=== PATIENT | male | born 1975 | race Caucasian/White ===

== ENCOUNTER 2020-07-05 13:49 | Outpatient (REF) | payer BC, SELFPAY | END 2020-07-05 13:50 | disposition home or self-care (01) | LOC: HO.LAB 13:49 | PROVIDERS: PCP Internal Medicine; Visit Provider Internal Medicine | DX: Z20.828 Contact with and (suspected) exposure to other viral communicable diseases (principal) | CPT/HCPCS: 87635 ==

== ENCOUNTER → 2020-09-21 13:48 | Outpatient (BNVA) | payer BC, SELFPAY | PROVIDERS: PCP Internal Medicine; Visit Provider Surgery | DX: Z76.89 Persons encountering health services in other specified circumstances (principal) ==

== ENCOUNTER 2020-10-05 13:55 | Outpatient (REF) | payer BC, SELFPAY ==
[2020-10-05 14:27] LABS: MANUAL DIFF FLAG NO
[2020-10-05 14:32] LABS: Basophils Percent Auto 0.6 % (0-2); Eosinophils Absolute Auto 0.3 X10*3/uL (0.0-0.4); Eosinophils Percent Auto 5.1 % (0-4); Hematocrit 45.5 % (42-52); Hemoglobin 15.2 g/dl (14.0-18.0); Imm Gran Abs Auto 0.01 X10*3/uL (0.00-0.03); Imm Gran Pct Auto 0.2 % (0.0-0.4); Lymphocytes Absolute Auto 1.8 X10*3/uL (1.2-4.9); Lymphocytes Percent Auto 27.2 % (20-40); Mean Corpuscular HGB Conc 33.4 g/dl (31.0-36.0); Mean Corpuscular Hemoglobin 30.5 pg (27.0-33.0); Mean Corpuscular Volume 91.4 fL (80-98); Mean Platelet Volume 10.4 fL (9.4-12.4); Monocytes Absolute Auto 0.6 X10*3/uL (0.1-1.2); Monocytes Percent Auto 8.9 % (2-11); Neutrophils Absolute Auto 3.9 X10*3/uL (2.0-8.3); Platelet Count 343 X10*3/uL (160-400); Red Blood Count 4.98 X10*6/uL (4.60-5.80); Red Cell Distribution Width 12.4 % (11.0-16.0); White Blood Count 6.7 X10*3/uL (4.8-10.8)
[2020-10-05 14:54] LABS: Alanine Aminotransferase 24 U/L (0-40); Albumin Level 4.6 g/dL (3.5-5.0); Alkaline Phosphatase 73 U/L (39-117); Anion Gap 12 (12-20); Aspartate Amino Transferase 20 U/L (5-37); Bilirubin Total 0.5 mg/dL (0.0-1.0); Blood Urea Nitrogen 18 mg/dL (9-16); Calcium 9.5 mg/dL (8.4-10.2); Carbon Dioxide 31 mmol/L (22-29); Chloride 99 mmol/L (96-108); Cholesterol 166 mg/dL; Estimated Glomerular Filt Rate > 60; Glucose Fasting 96 mg/dL (60-99); HDL Cholesterol 43 mg/dL; LDL Cholesterol Calculated 107 mg/dl; Potassium 4.8 mmol/l (3.3-5.1); Sodium 137 mmol/L (135-145); Triglycerides 81 mg/dL
== END 2020-10-05 13:56 | disposition home or self-care (01) ==
LOC: HO.LAB 13:55
PROVIDERS: PCP Internal Medicine; Visit Provider Internal Medicine
DX: Z00.00 Encounter for general adult medical examination without abnormal findings (principal); I10 Essential (primary) hypertension; F32.89 Other specified depressive episodes; H92.02 Otalgia, left ear
CPT/HCPCS: 36415; 80053; 80061; 85025

== ENCOUNTER 2020-10-31 13:17 | Outpatient (REF) | payer BC, SELFPAY ==
--- NOTE | ~2020-10-31 | CT_ITS ---
EXAMINATION: CT ABDOMEN AND PELVIS WITHOUT CONTRAST CLINICAL INFORMATION: Abdominal pain. COMPARISON: None. TECHNIQUE: Multidetector volumetric imaging was performed from the superior aspect of the liver through the pubic symphysis. Sagittal and coronal reformatted images were obtained on the technologist's workstation. This CT examination was performed using dose optimization techniques as appropriate, variously including the following: *Automated exposure control *Adjustment of mA and/or kV according to patient size (this includes techniques or standardized protocols for targeted exams where dose is matched to indication/reason for exam; i.e. extremities or head) *Use of iterative reconstruction technique DLP: 541 mGy-cm. FINDINGS: LUNG BASES: There is plate-like atelectasis in the lingula. There is a subpleural-based 6 mm nodule left lower lobe image 2/7. No additional nodules seen. The heart size is normal. LIVER, GALLBLADDER, AND BILIARY TREE: The liver is normal in size, shape, and attenuation. No focal hepatic lesion or biliary ductal dilatation is present. The gallbladder is unremarkable with no evidence of radiopaque gallstones, gallbladder wall thickening, or obvious pericholecystic inflammatory changes. PANCREAS: Unremarkable. SPLEEN: Unremarkable. ADRENAL GLANDS: Unremarkable. KIDNEYS AND URETERS: Both kidneys are normal size, shape and position. No radiopaque renal calculi, cyst or hydronephrosis seen. BLADDER: Unremarkable. GASTROINTESTINAL TRACT: There is scattered stool and gas seen throughout the colon without any significant distention. Small bowel loops are normal caliber. The stomach is nondistended. Appendix is not visualized. ABDOMINAL WALL: No significant hernia is appreciated. LYMPH NODES: There are numerous lymph nodes seen within small bowel mesentery in the left midabdomen with mild mesenteric fat stranding. The largest lymph node measures 1.4 x 0.8 cm. There are small retroperitoneal lymph nodes as well. VASCULAR: Unremarkable. PELVIC VISCERA: Unremarkable. OSSEOUS STRUCTURES: There is mild straightening of the lumbar lordosis. Loss of L5-S1 disc height is noted. No lytic or sclerotic process seen. CT/CT abdomen pelvis wo con IMPRESSION: Diffuse mesenteric haziness with multiple small to moderate-sized lymph nodes, nonspecific mesenteric adenitis. Left lower lobe subpleural-based [address] correlation.
== END 2020-10-31 13:18 | disposition home or self-care (01) ==
LOC: HO.CT 13:17
PROVIDERS: Visit Provider Surgery
DX: R10.9 Unspecified abdominal pain (principal); G89.29 Other chronic pain
CPT/HCPCS: 74176

== ENCOUNTER → 2020-11-10 09:49 | Outpatient (BNVA) | payer BC, SELFPAY | PROVIDERS: PCP Internal Medicine; Visit Provider Surgery ==

== ENCOUNTER 2021-01-02 13:29 | Outpatient (REF) | payer BC, SELFPAY ==
[2021-01-02 15:53] LABS: Blood Urea Nitrogen 22 mg/dL (9-16); Estimated Glomerular Filt Rate > 60
== END 2021-01-02 13:30 | disposition home or self-care (01) ==
LOC: HO.LAB 13:29
PROVIDERS: PCP Internal Medicine; Visit Provider Surgery
DX: I88.0 Nonspecific mesenteric lymphadenitis (principal); G89.29 Other chronic pain; R10.9 Unspecified abdominal pain
CPT/HCPCS: 36415; 82565; 84520

== ENCOUNTER 2021-02-08 13:20 | Outpatient (REF) | payer BC, SELFPAY ==
[2021-02-08 13:39] LABS: COVID-19 Test Negative (Negative)
== END 2021-02-08 13:21 | disposition home or self-care (01) ==
LOC: HO.LAB 13:20
PROVIDERS: Visit Provider Internal Medicine
DX: Z20.822 Contact with and (suspected) exposure to COVID-19 (principal)
CPT/HCPCS: 36415; 87635; C9803

== ENCOUNTER 2021-03-01 14:28 | Outpatient (REF) | payer BC, SELFPAY ==
--- NOTE | ~2021-03-01 | CT_ITS ---
EXAMINATION: CT ABDOMEN AND PELVIS WITH CONTRAST CLINICAL INFORMATION: Abdominal pain. COMPARISON: Previous CT of the abdomen and pelvis October 2020 TECHNIQUE: Multidetector volumetric images were obtained from the superior aspect of the liver through the pubic symphysis following administration 85 mL of Omnipaque 350 intravenous contrast. Sagittal and coronal reformatted images were obtained on the technologist's workstation. Oral contrast: Yes. This CT examination was performed using dose optimization techniques as appropriate, variously including the following: *Automated exposure control *Adjustment of mA and/or kV according to patient size (this includes techniques or standardized protocols for targeted exams where dose is matched to indication/reason for exam; i.e. extremities or head) *Use of iterative reconstruction technique DLP: 369 mGy-cm FINDINGS: LUNG BASES: There is a partially visualized 4 mm peripheral or subpleural left lower nodule that is probably stable. The lung bases are otherwise clear. LIVER, GALLBLADDER, AND BILIARY TREE: The liver is normal in size, shape, and attenuation. No focal hepatic lesion or biliary ductal dilatation is present. The gallbladder is unremarkable with no evidence of radiopaque gallstones, gallbladder wall thickening, or obvious pericholecystic inflammatory changes. PANCREAS: Unremarkable. SPLEEN: Unremarkable. ADRENAL GLANDS: Unremarkable. KIDNEYS AND URETERS: The kidneys are normal in size, shape, and attenuation. No hydronephrosis, hydroureter, or calculi seen. No perinephric stranding. BLADDER: Unremarkable. GASTROINTESTINAL TRACT: The small and large bowel are unremarkable. The appendix is not identified. The stomach is unremarkable. ABDOMINAL WALL: No significant hernia is appreciated. LYMPH NODES: Small bowel mesentery lymph nodes and small bowel mesentery fat stranding appears decreased compared to October 2020 exam. There are small bowel mesentery and retroperitoneal lymph nodes. No enlarged lymph nodes are seen. There is no ascites. VASCULAR: Unremarkable. PELVIC VISCERA: Unremarkable. OSSEOUS STRUCTURES: Unremarkable. CT/CT abdomen pelvis w con IMPRESSION: Interval decrease in small bowel mesentery lymphadenopathy and fat stranding compared to October 2020 exam. No enlarged lymph nodes are seen.
[2021-03-01] MEDS: iohexoL 350 MG/ML 100 ML INFUS..BTL 85 ML IV (15:05)
== END 2021-03-01 14:29 | disposition home or self-care (01) ==
LOC: HO.CT 14:28
PROVIDERS: Visit Provider Surgery
DX: R10.9 Unspecified abdominal pain (principal); G89.29 Other chronic pain
CPT/HCPCS: 74177; Q9967

== ENCOUNTER 2022-08-17 18:33 | Emergency (ER) | payer BC, SELFPAY ==
--- NOTE | ~2022-08-17 | XR_ITS ---
EXAMINATION: XR LUMBOSACRAL SPINE CLINICAL INFORMATION: Severe back pain COMPARISON: None TECHNIQUE: Three views of the lumbosacral spine. FINDINGS: The vertebral bodies and posterior elements are normal. Mild degenerative disc disease with endplate degenerative changes at L5-S1. The paraspinal soft tissues are normal. XR/XR lumbar spine 2-3V IMPRESSION: Mild degenerative disease at L5-S1.
[2022-08-17 19:41] VITALS: BP 158/86; PULSE 121; RESP 16; TEMP 36.4; O2SAT 95; BMI 27.1
--- NOTE | 2022-08-17 19:41 | ED.BACK ---
HPI - Back Pain/Injury General Chief Complaint: Back Pain/Injury Stated Complaint: sciatic Time Seen by Provider: 08/17/22 21:35 Related Data Home Medications Medication Instructions Recorded Confirmed lisinopril 20 1 tab PO DAILY 09/21/20 01/02/21 mg-hydrochlorothiazide 12.5 mg tablet sertraline 50 mg tablet 50 mg PO DAILY 09/21/20 01/02/21 Previous Rx's Medication Instructions Recorded cyclobenzaprine 10 mg tablet 10 mg PO BEDTIME PRN muscle spasm 08/18/22 #7 tabs ketorolac 10 mg tablet 10 mg PO TID PRN pain 5 days #15 08/18/22 tabs lidocaine 5 % topical patch 1 patch topical DAILY PRN pain #15 08/18/22 ea Allergies Allergy/AdvReac Type Severity Reaction Status Date / Time No Known Allergies Allergy Verified 01/02/21 13:49 [facility] Past Medical History Medical History (Updated 08/17/22 @ 22:11 by EVE Alaniz) Chronic left flank pain Depression Hypertension Mesenteric adenitis Surgical History History of appendectomy History of bilateral inguinal hernia repair History of ear surgery Family History Family History Father Parkinson disease Diabetes Social History Social History Advance Directives: No Physical Exam Vital Signs: Vital Signs: Last Vital Signs Temp 97.6 F 08/17/22 19:41 Pulse 121 H 08/17/22 19:41 Resp 16 08/17/22 19:41 BP 158/86 H 08/17/22 19:41 Pulse Ox 95 08/17/22 19:41 O2 Del Method 08/17/22 19:41 BMI result Body Mass Index 27.1 Course Course Course Narrative: RME: Patient is a 46-year-old male presenting to emergency department for evaluation of right lower back pain radiating into buttock and leg. Saw PCP 1.5 weeks ago, received RX for back pain, unknown name worked for a few days but then returned. Went back to PCP 4-5 days ago, new RX for cyclobenzaprine and diclofenac without any improvement. Pain is severe, causing not feel sick for the past couple of nights. Has associated numbness of the buttock, without rectal or perineal numbness. Denies identifiable precipitating injury, fevers, chills, burning with micturition, urinary frequency, urgency, hesitancy, bladder or bowel dysfunction, numbness or tingling of the perineum or bilateral legs. Denies any recent surgical procedures, any known immune compromising conditions, personal history of cancer, or IV drug usage. PE: Right paraspinal tenderness upon palpation. No fluctuance, induration, rash. Plan: XR Lumbar spine Medications Administered Discontinued Medications Generic Name Dose Route Start Last Admin Trade Name Freq PRN Reason Stop Dose Admin Cyclobenzaprine HCl 10 mg 08/17/22 22:05 08/17/22 22:43 Cyclobenzaprine Hcl 10 Mg Tablet PO 08/17/22 22:06 10 mg ONCE ONE Administration Diazepam 2 mg 08/17/22 23:26 08/18/22 00:26 Diazepam 2 Mg Tablet PO 08/17/22 23:27 2 mg ONCE ONE Administration Ketorolac Tromethamine 30 mg 08/17/22 22:05 08/17/22 22:44 Ketorolac Tromethamine 30 Mg/Ml Vial IM 08/17/22 22:06 30 mg ONCE ONE Administration Lidocaine 1 patch 08/17/22 22:05 08/17/22 22:44 Lidocaine 4 % Patch Adh..Patch TRANSDERMA 08/17/22 22:06 1 patch ONCE ONE Administration Protocol Morphine Sulfate 15 mg 08/17/22 22:05 08/17/22 22:43 Morphine Sulfate Immed Release 15 Mg Tablet PO 08/17/22 22:06 15 mg ONCE ONE Administration MDM - Back Pain/Injury Lab Data Result diagrams: 08/17/22 22:45 08/17/22 22:45 Labs: Lab Results 08/17/22 08/17/22 08/17/22 Range/Units 22:45 22:45 22:45 WBC 10.7 (4.8-10.8) X10*3/uL RBC 4.83 (4.60-5.80) X10*6/uL Hgb 15.1 (14.0-18.0) g/dl Hct 45.1 (42.0-52.0) % MCV 93.4 (80.0-98.0) fL MCH 31.3 (27.0-33.0) pg MCHC 33.5 (31.0-36.0) g/dl RDW 13.6 (11.0-16.0) % Plt Count 243 (160-400) X10*3/uL MPV 9.4 (9.4-12.4) fL Immature Gran % (Auto) 2.1 H (0.0-0.4) % Neut % (Auto) 82.5 H (45-73) % Lymph % (Auto) 5.8 L (20-40) % Polk % (Auto) 6.0 (2-11) % Eos % (Auto) 3.3 (0-4) % Baso % (Auto) 0.3 (0-2) % Lymph # (Auto) 0.6 L (1.2-4.9) X10*3/uL Polk # (Auto) 0.6 (0.1-1.2) X10*3/uL Eos # (Auto) 0.4 (0.0-0.4) X10*3/uL Baso # (Auto) 0.0 (0.0-0.2) X10*3/uL Abs Immat Gran (auto) 0.22 H (0.00-0.03) X10*3/uL Absolute Neuts (auto) 8.9 H (2.0-8.3) x10*3/uL Absolute Nucleated RBC 0.000 (0.0-0.012) X10*3/uL Nucleated RBC % (auto) 0.0 (0.0-0.2) /100WBC ESR 5 (0-15) MM/HR Sodium 135 (135-145) mmol/L Potassium 4.1 (3.3-5.1) mmol/L Chloride 99 (96-108) mmol/L Carbon Dioxide 24 (22-29) mmol/L Anion Gap 16 (12-20) BUN 24 H (9-16) mg/dL Creatinine 0.77 (0.5-1.4) mg/dL Estim Creat Clear Calc 131.5 Estimated GFR > 60 Random Glucose 83 (60-115) mg/dL Calcium 8.4 D (8.4-10.2) mg/dL C-Reactive Protein 6.65 H (< or = 0.50) mg/dL Discharge Plan Discharge Clinical Impression: Sciatica, Lumbar radiculopathy Patient Disposition: Home, Self-Care Instructions: Sciatica (ED), Lumbar Radiculopathy (ED) Additional Instructions: Take your medications as prescribed. If you were prescribed antibiotics today, it is important that you take your medication to their entirety, do not skip any doses, do not finish them early. Follow-up with your primary care provider this week. Return to the emergency department with new or worsening symptoms. Such as fevers, chills, chest pain, shortness of breath, nausea, vomiting, dizziness, headache, vision changes, lethargy, losing control of bladder or bowel, weakness, numbness or tingling, inability to feel your thighs. In case of emergency call 911 Do not take NSAIDs with ketorolac. Do not mix this medication with alcohol. XR/XR lumbar spine 2-3V IMPRESSION: Mild degenerative disease at L5-S1. Prescriptions: New cyclobenzaprine 10 mg tablet 10 mg PO BEDTIME PRN (Reason: muscle spasm) Qty: 7 0RF ketorolac 10 mg tablet 10 mg PO TID PRN (Reason: pain) 5 Days Qty: 15 0RF Rx Instructions: tolerated im in department lidocaine 5 % adhesive patch,medicated 1 patch topical DAILY PRN (Reason: pain) Qty: 15 0RF Rx Instructions: leave on most painful area for up to 12 hrs No Action lisinopril-hydrochlorothiazide 20-12.5 mg tablet 1 tab PO DAILY sertraline 50 mg tablet 50 mg PO DAILY Referrals: Tessie Miguel MD [Primary Care Provider] - 2 days Stand Alone Forms: Work/School Release Interventions: ED Discharge Assessment Last Done: 08/18/22 00:29 Discharge Date/Time: 08/18/22 00:30
--- NOTE | 2022-08-17 22:06 | ED.BACK ---
HPI - Back Pain/Injury General Chief Complaint: Back Pain/Injury Stated Complaint: sciatic Time Seen by Provider: 08/17/22 21:35 Source: patient Mode of arrival: ambulatory Limitations: no limitations History of Present Illness HPI Narrative: 46-year-old male history of hypertension, depression, chronic left flank pain, mesenteric adenitis, sciatica presenting to the emergency department with right-sided lower back pain that radiates into his buttocks and wraps around to the front of his right leg. Patient tells me that this has been going on to for the past 2 weeks progressively worsening. He tells me this feels like his typical sciatica however pain is not going away. He reports 10/10 pain worse with movement better at rest. He tells me he is very uncomfortable and has not been able to sleep for the past 2 days. He reports he gets intermittent tingling in his right buttocks and thigh. He tells me his ED able to ambulate with pain. He denies fevers, chills, nausea, vomiting, chest pain, shortness of breath, numbness, saddle paresthesias, midline tenderness, trauma, urinary/bowel incontinence/retention. Related Data Home Medications Medication Instructions Recorded Confirmed lisinopril 20 1 tab PO DAILY 09/21/20 01/02/21 mg-hydrochlorothiazide 12.5 mg tablet sertraline 50 mg tablet 50 mg PO DAILY 09/21/20 01/02/21 Previous Rx's Medication Instructions Recorded cyclobenzaprine 10 mg tablet 10 mg PO BEDTIME PRN muscle spasm 08/18/22 #7 tabs ketorolac 10 mg tablet 10 mg PO TID PRN pain 5 days #15 08/18/22 tabs lidocaine 5 % topical patch 1 patch topical DAILY PRN pain #15 08/18/22 ea Allergies Allergy/AdvReac Type Severity Reaction Status Date / Time No Known Allergies Allergy Verified 01/02/21 13:49 Review of Systems Review of Systems: Constitutional : No Weight loss, No Fever, No Chills, ENT/Mouth : No Hearing loss, No Ear Pain, No Nasal Congestion, No Sinus Pain, No Hoarseness, No sore throat, No Rhinorrhea, No Swallowing Difficulty Cardiovascular : No Chest Pain, No SOB Respiratory : No Cough, No Dyspnea Gastrointestinal : No Nausea, No Vomiting, No Diarrhea, No abdominal Pain, No Hematochezia, No Melena Genitourinary : No Dysuria, No Urinary Frequency, No Hematuria, No Urinary Incontinence, Musculoskeletal : positive back pain Skin : No Skin Lesions, No rash Neuro : No Weakness, No Numbness, No Paresthesias, no loss of bowel or bladder incontinence, no saddle anesthesia Yes all other systems are reviewed and are negative [facility], [facility] Past Medical History Attestation statement: The following information was validated with the patient. Source: old records reviewed and nursing notes reviewed Medical History (Updated 08/17/22 @ 22:11 by EVE Alaniz) Chronic left flank pain Depression Hypertension Mesenteric adenitis Surgical History History of appendectomy History of bilateral inguinal hernia repair History of ear surgery Family History Family History Father Parkinson disease Diabetes Social History Social History Advance Directives: No Physical Exam Vital Signs: Vital Signs: Last Vital Signs Temp 97.6 F 08/17/22 19:41 Pulse 121 H 08/17/22 19:41 Resp 16 08/17/22 19:41 BP 158/86 H 08/17/22 19:41 Pulse Ox 95 08/17/22 19:41 O2 Del Method 08/17/22 19:41 BMI result Body Mass Index 27.1 vss tachycardia from severe pain Appearance: Alert.? Oriented X3.? No acute distress.? Head: Normocephalic, atraumatic, no step-offs or deformities Eyes: Pupils equal, round and reactive to light.? CVS: Normal heart rate and rhythm.? Pulses normal.? Respiratory: No respiratory distress.? Breath sounds normal.? Abdomen: Soft and nontender.? Skin: Skin warm and dry.? Normal skin color.? Normal skin turgor.? Extremities: No lower extremity edema.? No calf ttp. 5/5 strength to bilateral upper and lower extremities 2+ DTRs equal bilateral to lower extremities and patellar region Back: No midline tenderness, no C-spine tenderness, full range of motion, no CVA tenderness bilaterally right-sided paraspinous tenderness. No midline tenderness Neuro: Oriented X 3.? No motor deficit.? No sensory deficit. CN 2-12 intact . Ambulating with steady gait with normal coordination. Course Reevaluation(s) Reevaluation #1: Patient without leukocytosis, ESR within normal limits, chemistry with no acute electrolyte abnormalities requiring intervention. CRP with slightly elevated CRP. X-ray of lumbar spine with degenerative disease at L5-S1. Patient tells me he is feeling much better after medications ambulatory around the department without difficulty, tells me pain is significantly improved from a 10 to a 5. He tells me he feels good to go home. Time: 00:08 Medications Administered Discontinued Medications Generic Name Dose Route Start Last Admin Trade Name Diamond PRN Reason Stop Dose Admin Cyclobenzaprine HCl 10 mg 08/17/22 22:05 08/17/22 22:43 Cyclobenzaprine Hcl 10 Mg Tablet PO 08/17/22 22:06 10 mg ONCE ONE Administration Ketorolac Tromethamine 30 mg 08/17/22 22:05 08/17/22 22:44 Ketorolac Tromethamine 30 Mg/Ml Vial IM 08/17/22 22:06 30 mg ONCE ONE Administration Lidocaine 1 patch 08/17/22 22:05 08/17/22 22:44 Lidocaine 4 % Patch Adh..Patch TRANSDERMA 08/17/22 22:06 1 patch ONCE ONE Administration Protocol Morphine Sulfate 15 mg 08/17/22 22:05 08/17/22 22:43 Morphine Sulfate Immed Release 15 Mg Tablet PO 08/17/22 22:06 15 mg ONCE ONE Administration MDM - Back Pain/Injury MDM Narrative Medical decision making narrative: [id number] 46-year-old male presents to the emergency department with right-sided sciatica, history of this, feels like typical flare. Reports severe pain. That is not going why. Physical examination with pain with palpation to right lower lumbar region and right buttocks. Normal sensation no saddle paresthesias, normal DTRs, no numbness or tingling. Likely sciatica versus lumbar radiculopathy, unlikely epidural abscess, cauda equina, no signs of cord compression. Plan at this time basic labs, ESR, CRP, imaging. Will medicate for pain Medical Records Attestation: I reviewed the patient's medical records. Lab Data Attestation: I reviewed the patient's lab results. Result diagrams: 08/17/22 22:45 08/17/22 22:45 Labs: Lab Results 08/17/22 08/17/22 08/17/22 Range/Units 22:45 22:45 22:45 WBC 10.7 (4.8-10.8) X10*3/uL RBC 4.83 (4.60-5.80) X10*6/uL Hgb 15.1 (14.0-18.0) g/dl Hct 45.1 (42.0-52.0) % MCV 93.4 (80.0-98.0) fL MCH 31.3 (27.0-33.0) pg MCHC 33.5 (31.0-36.0) g/dl RDW 13.6 (11.0-16.0) % Plt Count 243 (160-400) X10*3/uL MPV 9.4 (9.4-12.4) fL Immature Gran % (Auto) 2.1 H (0.0-0.4) % Neut % (Auto) 82.5 H (45-73) % Lymph % (Auto) 5.8 L (20-40) % Barber % (Auto) 6.0 (2-11) % Eos % (Auto) 3.3 (0-4) % Baso % (Auto) 0.3 (0-2) % Lymph # (Auto) 0.6 L (1.2-4.9) X10*3/uL Barber # (Auto) 0.6 (0.1-1.2) X10*3/uL Eos # (Auto) 0.4 (0.0-0.4) X10*3/uL Baso # (Auto) 0.0 (0.0-0.2) X10*3/uL Abs Immat Gran (auto) 0.22 H (0.00-0.03) X10*3/uL Absolute Neuts (auto) 8.9 H (2.0-8.3) x10*3/uL Absolute Nucleated RBC 0.000 (0.0-0.012) X10*3/uL Nucleated RBC % (auto) 0.0 (0.0-0.2) /100WBC ESR 5 (0-15) MM/HR Sodium 135 (135-145) mmol/L Potassium 4.1 (3.3-5.1) mmol/L Chloride 99 (96-108) mmol/L Carbon Dioxide 24 (22-29) mmol/L Anion Gap 16 (12-20) BUN 24 H (9-16) mg/dL Creatinine 0.77 (0.5-1.4) mg/dL Estim Creat Clear Calc 131.5 Estimated GFR > 60 Random Glucose 83 (60-115) mg/dL Calcium 8.4 D (8.4-10.2) mg/dL C-Reactive Protein 6.65 H (< or = 0.50) mg/dL Critical Care Time Critical Care Time Critical Care Time: No Discharge Plan Discharge Clinical Impression: Sciatica, Lumbar radiculopathy Patient Disposition: Home, Self-Care Instructions: Sciatica (ED), Lumbar Radiculopathy (ED) Additional Instructions: Take your medications as prescribed. If you were prescribed antibiotics today, it is important that you take your medication to their entirety, do not skip any doses, do not finish them early. Follow-up with your primary care provider this week. Return to the emergency department with new or worsening symptoms. Such as fevers, chills, chest pain, shortness of breath, nausea, vomiting, dizziness, headache, vision changes, lethargy, losing control of bladder or bowel, weakness, numbness or tingling, inability to feel your thighs. In case of emergency call 911 Do not take NSAIDs with ketorolac. Do not mix this medication with alcohol. XR/XR lumbar spine 2-3V IMPRESSION: Mild degenerative disease at L5-S1. Prescriptions: New cyclobenzaprine 10 mg tablet 10 mg PO BEDTIME PRN (Reason: muscle spasm) Qty: 7 0RF ketorolac 10 mg tablet 10 mg PO TID PRN (Reason: pain) 5 Days Qty: 15 0RF Rx Instructions: tolerated im in department lidocaine 5 % adhesive patch,medicated 1 patch topical DAILY PRN (Reason: pain) Qty: 15 0RF Rx Instructions: leave on most painful area for up to 12 hrs No Action lisinopril-hydrochlorothiazide 20-12.5 mg tablet 1 tab PO DAILY sertraline 50 mg tablet 50 mg PO DAILY Referrals: Tessie Miguel MD [Primary Care Provider] - 2 days Stand Alone Forms: Work/School Release
[2022-08-17] MEDS: Cyclobenzaprine HCl 10 MG TABLET PO (22:43)
[2022-08-17] MEDS: Morphine Sulfate Immed Release 15 MG TABLET PO (22:43)
[2022-08-17] MEDS: Ketorolac Tromethamine 30 MG/ML VIAL IM (22:44)
[2022-08-17] MEDS: Lidocaine 4 % Patch ADH..PATCH 1 PATCH TRANSDERMA (22:44)
[2022-08-17 22:49] LABS: MANUAL DIFF FLAG NO
[2022-08-17 22:50] LABS: Basophils Percent Auto 0.3 % (0-2); Eosinophils Absolute Auto 0.4 X10*3/uL (0.0-0.4); Eosinophils Percent Auto 3.3 % (0-4); Hematocrit 45.1 % (42.0-52.0); Hemoglobin 15.1 g/dl (14.0-18.0); Imm Gran Abs Auto 0.22 X10*3/uL (0.00-0.03); Imm Gran Pct Auto 2.1 % (0.0-0.4); Lymphocytes Absolute Auto 0.6 X10*3/uL (1.2-4.9); Lymphocytes Percent Auto 5.8 % (20-40); Mean Corpuscular HGB Conc 33.5 g/dl (31.0-36.0); Mean Corpuscular Hemoglobin 31.3 pg (27.0-33.0); Mean Corpuscular Volume 93.4 fL (80.0-98.0); Mean Platelet Volume 9.4 fL (9.4-12.4); Monocytes Absolute Auto 0.6 X10*3/uL (0.1-1.2); Neutrophils Absolute Auto 8.9 x10*3/uL (2.0-8.3); Neutrophils Percent Auto 82.5 % (45-73); Platelet Count 243 X10*3/uL (160-400); Red Blood Count 4.83 X10*6/uL (4.60-5.80); Red Cell Distribution Width 13.6 % (11.0-16.0); White Blood Count 10.7 X10*3/uL (4.8-10.8)
[2022-08-17 23:03] LABS: Anion Gap 16 (12-20); Blood Urea Nitrogen 24 mg/dL (9-16); C Reactive Protein 6.65 mg/dL (< or = 0.50); Calcium 8.4 mg/dL (8.4-10.2); Carbon Dioxide 24 mmol/L (22-29); Chloride 99 mmol/L (96-108); Creatinine Clr Calc Pharmacy 131.5; Estimated Glomerular Filt Rate > 60; Glucose Random 83 mg/dL (60-115); Potassium 4.1 mmol/L (3.3-5.1); Sodium 135 mmol/L (135-145)
[2022-08-17 23:33] LABS: Erythrocyte Sedimentation Rate 5 MM/HR (0-15)
[2022-08-18] MEDS: diazePAM 2 MG TABLET PO (00:26)
== END 2022-08-18 00:30 | disposition home or self-care (01) ==
PROVIDERS: Physician Assistant; Emergency Provider Internal Medicine; PCP Internal Medicine
DX: M54.41 Lumbago with sciatica, right side (principal); M54.16 Radiculopathy, lumbar region; I10 Essential (primary) hypertension; Z79.899 Other long term (current) drug therapy
CPT/HCPCS: 36415; 72100; 80048; 85025; 85652; 86140; 96372; 99283; 99284; J1885

== ENCOUNTER 2023-05-29 09:19 | Emergency (ER) | payer BC, SELFPAY ==
--- NOTE | ~2023-05-29 | CT_ITS ---
EXAMINATION: CT ABDOMEN AND PELVIS WITH CONTRAST CLINICAL INFORMATION: Left lower quadrant pain COMPARISON: CT abdomen from 03/01/2021 TECHNIQUE: Multidetector volumetric images were obtained from the superior aspect of the liver through the pubic symphysis following administration 85 mL of Omnipaque 350 intravenous contrast. Sagittal and coronal reformatted images were obtained on the technologist's workstation. Oral contrast: No This CT examination was performed using dose optimization techniques as appropriate, variously including the following: *Automated exposure control *Adjustment of mA and/or kV according to patient size (this includes techniques or standardized protocols for targeted exams where dose is matched to indication/reason for exam; i.e. extremities or head) *Use of iterative reconstruction technique DLP: 537 mGy-cm FINDINGS: LUNG BASES: Bibasilar atelectasis. No pneumothorax. No large pleural effusion. Slight elevation of left hemidiaphragm. LIVER, GALLBLADDER, AND BILIARY TREE: The liver is normal in size, shape, and attenuation. No focal hepatic lesion or biliary ductal dilatation is present. The gallbladder is unremarkable with no evidence of radiopaque gallstones, gallbladder wall thickening, or obvious pericholecystic inflammatory changes. PANCREAS: Unremarkable. SPLEEN: Unremarkable. ADRENAL GLANDS: Unremarkable. KIDNEYS AND URETERS: Subcentimeter hypodense focus in the left renal upper pole too small to characterize though statistically representing a cyst, not follow up. The kidneys are normal in size, shape, and attenuation. No hydronephrosis, hydroureter, or calculi seen. No perinephric stranding. BLADDER: Unremarkable. GASTROINTESTINAL TRACT: The small and large bowel are unremarkable. The appendix is unremarkable. ABDOMINAL WALL: Small fat filled umbilical hernia. Tiny fat filled right inguinal hernia. LYMPH NODES/MESENTERY: Subcentimeter lymph nodes in the mesentery with very slight haziness in the left mid mesentery which may reflect elements of mesenteric adenitis in the appropriate clinical setting. Correlation with symptomatology. VASCULAR: Unremarkable. PELVIC VISCERA: Prostate measures up to 4.9 cm. OSSEOUS STRUCTURES: Grade 1 retrolisthesis of L5 on S1. Straightening of normal lumbar lordosis which may be secondary to patient positioning versus muscle spasm. CT/CT abdomen pelvis w IV con IMPRESSION: Subcentimeter lymph nodes in the mesentery with very slight haziness in the left mid mesentery which may reflect elements of mesenteric adenitis in the appropriate clinical setting. Correlation with symptomatology.
[2023-05-29 10:00] VITALS: BP 161/11; PULSE 96; RESP 16; TEMP 36.6; O2SAT 96; BMI 29.2
[2023-05-29 11:11] LABS: MANUAL DIFF FLAG NO
[2023-05-29 11:15] LABS: Basophils Absolute Auto 0.1 X10*3/uL (0.0-0.2); Eosinophils Absolute Auto 0.2 X10*3/uL (0.0-0.4); Eosinophils Percent Auto 2.4 % (0-4); Hematocrit 52.1 % (42.0-52.0); Hemoglobin 17.3 g/dl (14.0-18.0); Imm Gran Abs Auto 0.03 X10*3/uL (0.00-0.03); Imm Gran Pct Auto 0.4 % (0.0-0.4); Lymphocytes Absolute Auto 1.2 X10*3/uL (1.2-4.9); Lymphocytes Percent Auto 15.6 % (20-40); Mean Corpuscular HGB Conc 33.2 g/dl (31.0-36.0); Mean Corpuscular Hemoglobin 30.6 pg (27.0-33.0); Mean Platelet Volume 9.5 fL (9.4-12.4); Monocytes Absolute Auto 0.8 X10*3/uL (0.1-1.2); Monocytes Percent Auto 10.3 % (2-11); Neutrophils Absolute Auto 5.5 x10*3/uL (2.0-8.3); Neutrophils Percent Auto 70.3 % (45-73); Platelet Count 339 X10*3/uL (160-400); Red Blood Count 5.66 X10*6/uL (4.60-5.80); Red Cell Distribution Width 13.3 % (11.0-16.0); White Blood Count 7.9 X10*3/uL (4.8-10.8)
[2023-05-29 11:31] LABS: Alanine Aminotransferase 26 U/L (0-40); Albumin Level 4.7 g/dL (3.5-5.0); Alkaline Phosphatase 96 U/L (39-117); Anion Gap 13 (12-20); Aspartate Amino Transferase 24 U/L (5-37); Bilirubin Direct 0.2 mg/dL (0.0-0.5); Bilirubin Total 0.6 mg/dL (0.0-1.0); Blood Urea Nitrogen 8 mg/dL (9-16); Calcium 9.9 mg/dL (8.4-10.2); Carbon Dioxide 30 mmol/L (22-29); Chloride 102 mmol/L (96-108); Creatinine Clr Calc Pharmacy 128.5; Estimated Glomerular Filt Rate > 60; Glucose Random 99 mg/dL (60-115); Potassium 4.9 mmol/L (3.3-5.1); Sodium 140 mmol/L (135-145); Total Protein 7.8 g/dL (6.5-8.0)
--- NOTE | 2023-05-29 11:41 | ED_ITS ---
HPI - Abdominal Pain General Chief Complaint: Abdominal Pain Stated Complaint: L sided pain Time Seen by Provider: 05/29/23 11:17 Source: patient and old records reviewed Mode of arrival: ambulatory Limitations: no limitations History of Present Illness HPI narrative: 47 yo male with hx of HTN and bouts of mesenteric adenitis and L flank pain a few years ago had CT scans and saw surgery - he has had bilateral inguinal hernia and appendectomy in the past. He comes in today with c/o L flank pain and bulge. No trauma no systemic symptoms - weight loss, fevers, night sweats, or GI symptoms. He notes it hurts to touch or move. MD elicited complaint: abdominal pain and flank pain Pertinent past history: none Onset (ago): day(s) (6) Pain Consistency: constant Location: LLQ and L flank Severity: moderate Quality: aching and fullness Radiation: none Migration to: no migration Exacerbating factors: movement Relieving factors: nothing Context: history of similar episodes Associated symptoms: denies other symptoms Related Data Home Medications Medication Instructions Recorded Confirmed lisinopril 20 1 tab PO DAILY 09/21/20 01/02/21 mg-hydrochlorothiazide 12.5 mg tablet sertraline 50 mg tablet 50 mg PO DAILY 09/21/20 01/02/21 Previous Rx's Medication Instructions Recorded cyclobenzaprine 10 mg tablet 10 mg PO BEDTIME PRN muscle spasm 08/18/22 #7 tabs ketorolac 10 mg tablet 10 mg PO TID PRN pain 5 days #15 08/18/22 tabs lidocaine 5 % topical patch 1 patch topical DAILY PRN pain #15 08/18/22 ea cyclobenzaprine 10 mg tablet 10 mg PO TID PRN muscle spasm #14 05/29/23 tabs ibuprofen 600 mg tablet 600 mg PO Q6H PRN pain #30 tabs 05/29/23 ondansetron 4 mg disintegrating 4 mg PO Q8H PRN nausea and 05/29/23 tablet vomiting #20 tabs Allergies Allergy/AdvReac Type Severity Reaction Status Date / Time No Known Allergies Allergy Verified 01/02/21 13:49 Review of Systems Review of Systems Constitutional : No Fever, No Chills, no night sweats ENT/Mouth : No sore throat Eyes: No Eye Pain, No Swelling, No Redness Cardiovascular : No Chest Pain, No SOB Respiratory : No Cough, No Sputum, No Wheezing Gastrointestinal : no Nausea, no Vomiting, No Diarrhea, positive abdominal pain Genitourinary : no Dysuria, no urinary frequency, no Hematuria, positive Flank Pain, no hesitancy, no testicular pain Musculoskeletal : No joint pain, No Myalgias Skin : No Skin Lesions, No rash Neuro : No Weakness, No Numbness, No Headache Psych : No Anxiety/Panic, No Depression Heme/Lymph: No Bruising, No Lymphadenopathy Endocrine : No Polyuria, No Polydipsia All other systems reviewed and are negative [facility] Past Medical History Attestation statement: The following information was validated with the patient. Medical History Chronic left flank pain Depression Hypertension Mesenteric adenitis Surgical History History of appendectomy History of bilateral inguinal hernia repair History of ear surgery Family History Family History Father Parkinson disease Diabetes Social History Social History Patient Tobacco Use Status: Tobacco use Unknown Smoked in Last 30 Days: Yes Use of substances other than those prescribed or required for medical reasons: No Advance Directives: No Physical Exam ED Vital Signs: Vital Signs - 24 hr 05/29/23 10:00 05/29/23 11:59 05/29/23 13:19 Temperature 98 F Pulse Rate 96 96 Respiratory Rate 16 16 16 Blood Pressure 161/11 H Pulse Oximetry 96 97 Oxygen Delivery Method Room Air Room Air 05/29/23 13:23 Temperature Pulse Rate Respiratory Rate Blood Pressure 150/91 H Pulse Oximetry Oxygen Delivery Method BMI result Body Mass Index 29.2 Appearance: Alert. Oriented X3. No acute distress. Eyes: Pupils equal, round and reactive to light. ENT: Pharynx normal. Neck: Normal inspection. Neck supple. CVS: Normal heart rate and rhythm. Pulses normal. Respiratory: No respiratory distress. Breath sounds normal. Abdomen: Soft and mild ttp no mass felt he states he can feel a bulge I do not appreciate this clinically no hernia sac felt Skin: Skin warm and dry. Normal skin color. Normal skin turgor. Extremities: No lower extremity edema. No calf ttp Neuro: Oriented X 3. No motor deficit. No sensory deficit. Medical Decision Making Medical Decision Making [facility] Narrative: 47 yo male with hx of HTN and bouts of mesenteric adenitis and L flank pain a few years ago here with L flank pain and bulge felt - I do not see a mass or hernia on my exam. At this time I am going to obtain basic labs, UA and CT scan given hx of mesenteric adenitis to make sure no increase in nodes or mass. IV toradol and IV morphine for pain ordered. Abdomen is benign. No testicular pain. Differential Diagnosis Differential Diagnoses: The differential diagnosis associated with the presentation includes renal colic, hernia, mesenteric adenitis, chronic pain Admission/Observation Consideration of admission/observation: Escalation of care including admission/observation considered not toxic, no fevers or vomiting can be managed as outpatient Lab Data [facility] Lab Attestation statement: I reviewed the patient's lab results. 05/29/23 11:06 05/29/23 11:06 Labs: Lab Results 05/29/23 05/29/23 05/29/23 Range/Units 11:06 11:06 13:43 WBC 7.9 (4.8-10.8) X10*3/uL RBC 5.66 (4.60-5.80) X10*6/uL Hgb 17.3 (14.0-18.0) g/dl Hct 52.1 H (42.0-52.0) % MCV 92.0 (80.0-98.0) fL MCH 30.6 (27.0-33.0) pg MCHC 33.2 (31.0-36.0) g/dl RDW 13.3 (11.0-16.0) % Plt Count 339 D (160-400) X10*3/uL MPV 9.5 (9.4-12.4) fL Immature Gran % (Auto) 0.4 (0.0-0.4) % Neut % (Auto) 70.3 (45-73) % Lymph % (Auto) 15.6 L (20-40) % Emmons % (Auto) 10.3 (2-11) % Eos % (Auto) 2.4 (0-4) % Baso % (Auto) 1.0 (0-2) % Lymph # (Auto) 1.2 (1.2-4.9) X10*3/uL Emmons # (Auto) 0.8 (0.1-1.2) X10*3/uL Eos # (Auto) 0.2 (0.0-0.4) X10*3/uL Baso # (Auto) 0.1 (0.0-0.2) X10*3/uL Abs Immat Gran (auto) 0.03 (0.00-0.03) X10*3/uL Absolute Neuts (auto) 5.5 (2.0-8.3) x10*3/uL Absolute Nucleated RBC 0.000 (0.0-0.012) X10*3/uL Nucleated RBC % (auto) 0.0 (0.0-0.2) /100WBC Sodium 140 (135-145) mmol/L Potassium 4.9 (3.3-5.1) mmol/L Chloride 102 (96-108) mmol/L Carbon Dioxide 30 H (22-29) mmol/L Anion Gap 13 (12-20) BUN 8 L (9-16) mg/dL Creatinine 0.86 (0.5-1.4) mg/dL Estim Creat Clear Calc 128.5 Estimated GFR > 60 Random Glucose 99 (60-115) mg/dL Calcium 9.9 D (8.4-10.2) mg/dL Total Bilirubin 0.6 (0.0-1.0) mg/dL Direct Bilirubin 0.2 (0.0-0.5) mg/dL AST 24 (5-37) U/L ALT 26 (0-40) U/L Alkaline Phosphatase 96 (39-117) U/L Total Protein 7.8 (6.5-8.0) g/dL Albumin 4.7 (3.5-5.0) g/dL Lipase 16 (8-78) U/L Urine Color Yellow Urine Appearance Clear Urine pH 6.5 (5.0-9.0) Ur Specific [place] >= 1.030 H (1.005-1.025) Urine Protein 30 (1+) H (Neg-Trace) mg/dL Urine Glucose (UA) Negative (Negative) mg/dL Urine Ketones Negative (Negative) mg/dL Urine Blood Negative (Negative) Urine Nitrite Negative (Negative) Ur Leukocyte Esterase Negative (Negative) Independent Interpretation I performed an independent interpretation of an: CT Scan (mesenteric adenitis) Radiology Impression Discussion of test interpretation with radiology: I have reviewed the radiologist's reading. External Record Review External record reviewed: Inpatient record and Office record Prescription Management I considered prescription management with: Pain Medication Medications Administered Discontinued Medications Generic Name Dose Route Start Last Admin Trade Name Freq PRN Reason Stop Dose Admin Sodium Chloride 1,000 mls @ 999 mls/hr 05/29/23 11:30 05/29/23 13:07 Ns IV 05/29/23 12:30 Infused .Q1H1M XIOMARA Infusion Iohexol 85 ml 05/29/23 12:36 05/29/23 12:37 Iohexol 350 Mg/Ml 100 Ml Infus..Btl IV 05/29/23 12:37 85 ml ONCE ONE Administration Ketorolac Tromethamine 15 mg 05/29/23 11:27 05/29/23 11:56 Ketorolac Tromethamine 15 Mg/Ml Vial IVPUSH 05/29/23 11:28 15 mg ONCE ONE Administration Morphine Sulfate 4 mg 05/29/23 11:27 05/29/23 11:59 Morphine Sulfate 4 Mg/Ml Cartridge IVPUSH 05/29/23 11:28 4 mg ONCE ONE Administration Protocol Ondansetron HCl 4 mg 05/29/23 11:27 05/29/23 11:58 Ondansetron Hcl 4 Mg/2 Ml Vial IVPUSH 05/29/23 11:28 4 mg ONCE ONE Administration Discharge Plan Discharge Clinical Impression: Mesenteric adenitis Patient Disposition: Home, Self-Care Instructions: Mesenteric Adenitis (ED) Additional Instructions: your CT scan showed possible mesenteric adenitis again which is inflammed lymph nodes nothing very enlarged or concerning. this is usually self limiting and treated with NSAIDs and muscle relaxers. return for worsening pain, fevers, vomiting, inability to urinate. I would touch base with your doctor again about this issue - similar findings back in 2020 Prescriptions: New cyclobenzaprine 10 mg tablet 10 mg PO TID PRN (Reason: muscle spasm) Qty: 14 0RF ibuprofen 600 mg tablet 600 mg PO Q6H PRN (Reason: pain) Qty: 30 0RF ondansetron 4 mg tablet,disintegrating 4 mg PO Q8H PRN (Reason: nausea and vomiting) Qty: 20 0RF No Action cyclobenzaprine 10 mg tablet 10 mg PO BEDTIME PRN (Reason: muscle spasm) Qty: 7 0RF ketorolac 10 mg tablet 10 mg PO TID PRN (Reason: pain) 5 Days Qty: 15 0RF Rx Instructions: tolerated im in department lidocaine 5 % adhesive patch,medicated 1 patch topical DAILY PRN (Reason: pain) Qty: 15 0RF Rx Instructions: leave on most painful area for up to 12 hrs lisinopril-hydrochlorothiazide 20-12.5 mg tablet 1 tab PO DAILY sertraline 50 mg tablet 50 mg PO DAILY Stand Alone Forms: Work/School Release
[2023-05-29 11:51] LABS: Lipase 16 U/L (8-78)
[2023-05-29] MEDS: Ketorolac Tromethamine 15 MG/ML VIAL IVPUSH (11:56)
[2023-05-29] MEDS: 0.9 % Sodium Chloride 1,000 ML 999 ML IV (11:56)
[2023-05-29] MEDS: ondansetron HCL 4 MG/2 ML VIAL IVPUSH (11:58)
[2023-05-29 11:59] VITALS: RESP 16
[2023-05-29] MEDS: Morphine Sulfate 4 MG/ML CARTRIDGE IVPUSH (11:59)
--- NOTE | 2023-05-29 12:05 | PC.NURSE ---
axox4. pt reports was supposed to have out pt CT scan from pcp for L. flank pain x months. pt states pain worsened last night. pt denies n/v/d/cp/sob/urinary sx. vss. +bs x 4; no abd. distention/tenderness noted. last bm today. iv established. ivf infusing. call estrada within reach.
[2023-05-29] MEDS: iohexoL 350 MG/ML 100 ML INFUS..BTL 85 ML IV (12:37)
[2023-05-29 13:19] VITALS: PULSE 96; RESP 16; O2SAT 97
[2023-05-29 13:23] VITALS: BP 150/91
--- NOTE | 2023-05-29 13:46 | MHC.EDTECH ---
Urine collected and sent to lab
[2023-05-29 13:55] LABS: Appearance Urine Clear; Color Urine Yellow; Glucose Urine UA Negative (Negative); Leukocyte Esterase Urine Negative (Negative); Nitrite Urine Negative (Negative); PH 6.5 (5.0-9.0); Specific Gravity - Urine >= 1.030 (1.005-1.025); UMIC TRIGGER UACC YES; Urine Blood Negative (Negative); Urine Ketones Negative (Negative); Urine Protein 30 (1+) mg/dL (Neg-Trace)
[2023-05-29 14:09] LABS: Bacteria Urine None Seen (None Seen); Hyaline Casts Urine 0-2 /LPF (0-2); RBC Urine 0-2 /HPF (0-2); Squamous Epithelial Cell Urine 0-2 /HPF (0-2); WBC Urine 0-5 /HPF (0-5)
== END 2023-05-29 14:29 | disposition home or self-care (01) ==
PROVIDERS: Emergency Provider Emergency Medicine; PCP Internal Medicine
DX: I88.0 Nonspecific mesenteric lymphadenitis (principal); R10.9 Unspecified abdominal pain; I10 Essential (primary) hypertension; Z79.899 Other long term (current) drug therapy
CPT/HCPCS: 36415; 74177; 80048; 80076; 81001; 83690; 85025; 96361; 96374; 96375; 99284; J1885; J2270; J2405; Q9967

== ENCOUNTER 2023-10-25 09:02 | Day surgery (SDC) | payer BC, SELFPAY ==
[2023-10-23 14:59] VITALS: BMI 29.8
--- NOTE | 2023-10-24 09:15 | P.CONAN_ITS ---
Documented by User: Stefani Reis NP 10/24/23 09:17 HPI - Anesthesia Eval Consult details Narrative: 48yo M for Upper Endoscopy and Colonoscopy [facility] Active Problems Active Problems: All Active Problems (Updated 10/23/23 @ 14:58 by Leslee Lanza RN) Mesenteric adenitis (Acute) Chronic left flank pain (Acute) Past Medical History Medical History Mesenteric adenitis Chronic left flank pain Hypertension Depression Family History Family History Father Parkinson disease Diabetes Surgical History Surgical History History of ear surgery History of bilateral inguinal hernia repair History of appendectomy Social History Social History Household Members: Spouse Patient Tobacco Use Status: Current everyday Tobacco user Tobacco use type: Cigarette Smoked in Last 30 Days: Yes Patient Interested in Nicotine Replacement: No Are you DNR?: No Advance Directives: No Advance Directives Information Provided: Yes Nutrition Risks: No Nutritional Risk Meds Allergies Allergy/AdvReac Type Severity Reaction Status Date / Time No Known Allergies Allergy Verified 10/25/23 09:18 Home Medications Medication Instructions Recorded Confirmed Last Taken Type lisinopril 20 1 tab PO DAILY 09/21/20 01/02/21 Unknown History mg-hydrochlorothiazide 12.5 mg tablet sertraline 50 mg tablet 50 mg PO DAILY 09/21/20 01/02/21 Unknown History Exam Height,Weight and Vital Signs: Height 6 ft Weight 99.79 kg Pertinent Lab Results Pertinent Lab Results: Laboratory Tests 05/29/23 11:06 WBC 7.9 Hgb 17.3 Hct 52.1 H Plt Count 339 D Sodium 140 Potassium 4.9 Chloride 102 Carbon Dioxide 30 H BUN 8 L Creatinine 0.86 Assessment and Plan Assessment Anesthesia Assessment: Chart Reviewed Documented by User: Desirae Lynn MD 10/25/23 09:38 PMFSH Active Problems Active Problems: All Active Problems (Updated 10/25/23 @ 09:32 by Desirae Lynn MD) Mesenteric adenitis (Acute) Chronic left flank pain (Acute) HTN Smoker- last cigarette this am Depression Past Medical History Medical History Mesenteric adenitis Chronic left flank pain Hypertension Depression Family History Family History Father Parkinson disease Diabetes Family history of problems with anesthesia: No Surgical History Surgical History History of ear surgery History of bilateral inguinal hernia repair History of appendectomy History of Problems with Anesthesia: No Social History Social History Household Members: Spouse Patient Tobacco Use Status: Current everyday Tobacco user Tobacco use type: Cigarette Smoked in Last 30 Days: Yes Patient Interested in Nicotine Replacement: No Are you DNR?: No Advance Directives: No Advance Directives Information Provided: Yes Nutrition Risks: No Nutritional Risk Meds Allergies Allergy/AdvReac Type Severity Reaction Status Date / Time No Known Allergies Allergy Verified 10/25/23 09:18 Home Medications Medication Instructions Recorded Confirmed Last Taken Type lisinopril 20 1 tab PO DAILY 09/21/20 01/02/21 Unknown History mg-hydrochlorothiazide 12.5 mg tablet sertraline 50 mg tablet 50 mg PO DAILY 09/21/20 01/02/21 Unknown History Exam Airway Mallampati Class: I TM Dist: >3cm Neck ROM: Full Loose/Missing/Broken Teeth: No (Denies broken, loose, missing teeth) Heart: RRR Lungs: CTAB Assessment and Plan Assessment Anesthesia Assessment: Anesthesia Plan Discussed Final Anesthetic Review Family History of Problems with Anesthesia: No History of Problems with Anesthesia: No NPO: Yes ASA Class: II Final Preanesthetic Review: No Changes in Pt Med Stat, Meds/Allgs Chart Reviewed, Consent Obtained/Reviewed and Anes Risks/Benef Reviewed Patient Risk: Low Procedure Risk: Low Assessment/Block/Sedation in SS: Assess/Block/Sedation- Anesthetic Plan Anesthetic Plan: MAC: and TIVA Disposition: Standard PACU
[2023-10-25 09:18] VITALS: BMI 28.4
[2023-10-25] MEDS: Lactated Ringers 1,000 ML 100 ML IVCONT (09:28)
[2023-10-25 09:59] VITALS: BP 113/78; PULSE 94; RESP 18; TEMP 36.8; O2SAT 95
--- NOTE | 2023-10-25 09:59 | PC.NURSE ---
patient states no longer taking any medications since stopping alcohol consumption a few months ago. states pcp aware. updated in chart.
[2023-10-25 12:06] VITALS: BP 101/59; PULSE 93; RESP 16; TEMP 36.2; O2SAT 93
--- NOTE | 2023-10-25 12:17 | P.BOP_ITS ---
Brief Operative Note Date of Service: 10/25/23 Pre-op diagnosis: GERD, Screening Post-op diagnosis: other (Rectal polyp, R/O Patel's) Procedure: EGD with biopsies, Colonoscopy to the cecum with hot snare polypectomy with placement of two Resolution clips in the rectum Surgeon: Theron Kim MD Anesthesia: MAC Was an Drop Forger Helper used for this Procedure?: No Estimated blood loss (mL): 2.0 Pathology: other (A. Gastric antrum B. Esophagus at 40cm C. Rectal polyp) Condition: stable Disposition: PACU
[2023-10-25 12:21] VITALS: BP 104/80; PULSE 86; RESP 14; O2SAT 98
[2023-10-25 12:36] VITALS: BP 100/74; PULSE 89; RESP 14; O2SAT 100
--- NOTE | 2023-10-25 12:43 | OP_ITS ---
DATE OF SERVICE: 10/25/2023 SURGEON: Theron Kim MD INDICATIONS: The patient presents for evaluation of gastroesophageal reflux and colorectal cancer screening. Full consent has been obtained from him for this, including risks of bleeding and perforation. PREOPERATIVE DIAGNOSIS: POSTOPERATIVE DIAGNOSIS: PROCEDURE PERFORMED: Esophagogastroduodenoscopy with biopsies, and colonoscopy to the cecum with hot snare polypectomy and placement of 2 resolution clips on the polypectomy site. ESTIMATED BLOOD LOSS: COMPLICATIONS: ANESTHESIA: Monitored anesthesia care. ASSISTANTS: SPECIMENS: PREOPERATIVE DIAGNOSES: Gastroesophageal reflux and colorectal cancer screening. POSTOPERATIVE DIAGNOSES: Gastroesophageal reflux and colorectal cancer screening, small hiatal hernia, mild gastritis, rule out Patel's esophagus, rectal polyp, diverticulosis, internal hemorrhoids. DESCRIPTION OF PROCEDURE: The patient was placed in the left lateral decubitus position. The Olympus video gastroscope was passed in the posterior oropharynx and upper esophagus under direct vision. The scope was passed slowly to the distal esophagus. The gastroesophageal junction appeared at 40 cm. Extending from this to 39 cm was a single projection of probable Patel's mucosa but without any overlying lesions nor inflammation. The scope entered the stomach. There was a small hiatal hernia. The scope was advanced to the pylorus, and the duodenum was cannulated to the descending portion. The duodenum including the bulb appeared normal without mass or ulceration. The scope was withdrawn back to the stomach. The gastric antrum had some areas of edema and erythema. There was no ulceration nor mass. There was good peristalsis. Biopsies were obtained from the gastric antrum. The scope was retroflexed visualizing the proximal stomach carefully, which appeared normal, without any sign of mass or ulceration. The scope was straightened and withdrawn back to the esophagus. Multiple biopsies were obtained from the area of Patel's appearing mucosa. Proximal to 39 cm, the esophageal mucosa appeared normal. The scope was withdrawn from the patient. He was turned around for the colonoscopy. The digital rectal exam revealed no abnormalities. The Olympus video pediatric colonoscope was entered into the rectum and advanced easily to the cecum. Once in the cecum, I did identify normal-appearing cecal pouch with appendiceal orifice and a normal-appearing ileocecal valve. There was transillumination of light deep in the right lower quadrant. The entire cecum and ileocecal valve appeared normal. The scope was slowly withdrawn assessing all mucosal surfaces carefully. Preparation was excellent. There was a mild amount of sigmoid diverticulosis. I did not visualize any sign of colitis nor angiodysplasias. The only polyp I visualized was in the mid-rectum. It was 1.5cm in diameter, on a short stalk, and somewhat lobulated. There was no associated ulceration or friability, It was removed by hot snare polypectomy and recovered by withdrawing it on the tip of the scope. The scope was advanced back to the polypectomy site which appeared clean, without any sign of residual polyp nor bleeding. Two resolution clips were applied to the polypectomy site with good deployment and good hemostasis. The remainder of the rectum appeared normal. The scope was retroflexed visualizing internal hemorrhoids. The scope was straightened and withdrawn from the patient. He tolerated both procedures well and was returned to the recovery area in stable condition. IMPRESSION: 1. Rectal polyp. 2. Diverticulosis. 3. Internal hemorrhoids. 4. Small hiatal hernia, rule out Patel's esophagus. 5. Mild gastritis. PLAN: The results of the pathology will be checked. I would recommend a repeat colonoscopy in 3 years for further screening and surveillance. If the esophageal biopsies do show Patel's esophagus, I would recommend an upper endoscopy on that same day as well. He was advised not to use any aspirin and NSAIDs for 1 week. Given his history of smoking, previous alcohol abuse, and today's findings, I shall start him on omeprazole 20 mg daily. He was advised to see me again as needed. MD BARBARA John/VU / [id number] MTDD
[2023-10-25 12:51] VITALS: BP 108/69; PULSE 88; RESP 16; TEMP 36.2; O2SAT 100
== END 2023-10-25 13:05 | disposition home or self-care (01) ==
PROVIDERS: PCP Internal Medicine; Visit Provider Internal Medicine
PROC: (CPT 45385; principal; 2023-10-25 11:10)
DX: Z12.11 Encounter for screening for malignant neoplasm of colon (principal); D12.8 Benign neoplasm of rectum; K57.30 Diverticulosis of large intestine without perforation or abscess without bleeding; K64.8 Other hemorrhoids; K21.9 Gastro-esophageal reflux disease without esophagitis; K29.50 Unspecified chronic gastritis without bleeding; K44.9 Diaphragmatic hernia without obstruction or gangrene; I10 Essential (primary) hypertension; R10.9 Unspecified abdominal pain; F10.10 Alcohol abuse, uncomplicated; F17.210 Nicotine dependence, cigarettes, uncomplicated
CPT/HCPCS: 45385; 43239; 88305; 88313; 88342; J1596; J2704

== ENCOUNTER 2024-03-26 12:35 | Emergency (ER) | payer BC, SELFPAY ==
[2024-03-26 12:45] VITALS: BP 184/119; BP 186/104; PULSE 125; PULSE 98; RESP 18; TEMP 36.3; O2SAT 96; O2SAT 99; BMI 31.2
[2024-03-26 13:05] LABS: Hematocrit 49.4 % (42.0-52.0); Hemoglobin 17.1 g/dl (14.0-18.0); Mean Corpuscular HGB Conc 34.6 g/dl (31.0-36.0); Mean Corpuscular Hemoglobin 31.3 pg (27.0-33.0); Mean Corpuscular Volume 90.5 fL (80.0-98.0); Mean Platelet Volume 9.2 fL (9.4-12.4); Platelet Count 324 X10*3/uL (160-400); Red Blood Count 5.46 X10*6/uL (4.60-5.80); Red Cell Distribution Width 13.5 % (11.0-16.0); White Blood Count 7.6 X10*3/uL (4.8-10.8)
--- OUTSIDE RECORDS SUMMARY | 2024-03-26 13:15 | XMS_ITS | Patient Health Record ---
Author Organization [facility] Address [address] [place] [address] Care Team Providers Care Bottling Line Operator Name Role Phone JoleenrafaTessie Primary Care Provider Unavailab Theron Barrera [phone] ALLERGIES No Known Allergies RESULTS Component Value Reference Range Notes Pathology (Not yet reviewed by provider) Interpretation: Performing Lab:[facility], [address] [place] [id number] Notes/Report: REASON FOR REFERRAL No Information MEDICATIONS Medication SIG (Take, Route, Fr equency, Duration) Notes Start Date End Date Status Omeprazole 20 MG 1 Orally Every morni ng for 30 day(s) 10/25/2023 Active IMMUNIZATIONS Vaccine Route Administration Date Status Comme nts Influenza Unknown 07/31/2023 Refused SOCIAL HISTORY Tobacco Use: Social History Observation Description Date Details (start date - stop date) Current Smoker NA - NA Sex Assigned At : Social History Observation Description Sex Assigned At Unknown Tobacco Use/Smoking Question Answer Notes Patient is a current smoker Alcohol Screen Question Answer Notes Did you have a drink contain ing alcohol in the past year? Yes How often did you have a dri nk containing alcohol in the past year? 4 or more times a week (4 points) How many drinks did you have on a typical day when you were drinking in the past year? 5 or 6 drinks (2 points) How often did you have 6 or more drinks on one occasion in the past year? Daily or almost daily (4 points) Points 10 Interpretation Positive PROBLEMS Problem Type ICD Code Onset Dates Problem Status W/U Status Risk SNOMED Code Notes Problem Screening for colon cancer (Z12.11) Active confirmed 832932106 Problem Preprocedural examination (Z01.818) Active confirmed 334543260401754 Problem Gastroesophageal reflux disease, unspecified whether esophagitis present (K21.9) Active confirmed 355222151 Problem Left sided abdominal pain (R10.9) Active confirmed 901106432 Problem Diverticulosis of large intestine without perforation or abscess without bleeding (K57.30) Active confirmed Diverticul ar disease of colon (759505687) Problem Gastritis (K29.70) Active confirmed Gas tritis (4518404) Problem Gastroesophageal reflux disease without esophagitis (K21.9) Active confirmed Gastroesophagea l reflux disease without esophagitis (128173763) VITAL SIGNS Temperature 97.7 degrees Fahrenheit 07/31/2023 Blood pressure diastolic 00 mm Hg 07/31/2023 Height 6 ft in 07/31/2023 Blood pressure systolic 000 mm Hg 07/31/2023 Weight 220 lb 4 oz lbs 07/31/2023 BMI 29.87 kg/m2 07/31/2023 Encounters Encounter Location Date Provider Diagnosis [facility] Outpatient [address] [place] [phone] 10/25/2023 Theron Kim Encounter for screen ing colonoscopy Z12.11 ; Rectal polyp K62.1 ; Diverticulosis of large intestine without perforation or abscess without bleeding K57.30 ; Other hemorrhoids K64.8 ; Other specified disease of esophagus K22.89 ; Gastritis K29.70 ; Hiatal hernia K44.9 and Gastroesophageal reflux disease without esophagitis K21.9 [facility] [address] [place] [phone] 07/31/2023 Theron Kim Screening for colon cancer Z12.11 ; Left sided abdominal pain R10.9 ; Preprocedural examination Z01.818 and Gastroesophageal reflux disease, unspecified whether esophagitis present K21.9 [facility] [address] [place] [phone] 07/31/2023 Theron Kim [facility] [address] [place] [phone] 10/25/2023 Theron Kim ASSESSMENTS Encounter Date Diagnosis Assessment Notes Treatment Notes Treatment Clinical Notes 10/25/2023 Encounter for screen ing colonoscopy (ICD-10 - Z12.11) 10/25/2023 Rectal polyp (ICD-10 - K62.1) 07/31/2023 Screening for colon cancer (ICD-10 - Z12.11) 07/31/2023 Left sided abdominal pain (ICD-10 - R10.9) 10/25/2023 Diverticulosis of la rge intestine without perforation or abscess without bleeding (ICD-10 - K57.30) 07/31/2023 Preprocedural examination (ICD-10 - Z01.818) 10/25/2023 Other hemorrhoids (ICD-10 - K64.8) 07/31/2023 Gastroesophageal ref lux disease, unspecified whether esophagitis present (ICD-10 - K21.9) 10/25/2023 Other specified dise ase of esophagus (ICD-10 - K22.89) 10/25/2023 Gastritis (ICD-10 - K29.70) 10/25/2023 Hiatal hernia (ICD-1 0 - K44.9) 10/25/2023 Gastroesophageal ref lux disease without esophagitis (ICD-10 - K21.9) PLAN OF TREATMENT Pending Test Test Name Order Date Pathology 10/25/2023 Future Test Test Name Order Date UPPER GI ENDOSCOPY 07/31/2023 COLONOSCOPY 07/31/2023 Insurance Providers Payer Name Payer Address Payer Phone Subscriber Number Group Number Insured Name Patient Relationship to Insured Coverage Start Date Coverage End Date [facility] [address] [place], [place] [id number] AAYUSH JANETTE Self - patient is the insured MEDICAL (GENERAL) HISTORY Medical History History ICD Code HTN--not on any meds as of the 07/2023 O V Denies ID,DM,CVA,Lung disease,renal dise ase Surgical History Surgery Date(Month/Year)
[2024-03-26] MEDS: LORazepam 1 MG TABLET PO (13:24)
[2024-03-26 13:34] LABS: Amphetamine Screen Urine Not Detected (Not Detect); Barbiturates, Urine Not Detected (Not Detect); Benzodiazepines Screen Urine Not Detected (Not Detect); Buprenorphine Scr Not Detected (Not Detect); Cannabinoid Screen Urine Not Detected (Not Detect); Cocaine Screen Urine POSITIVE (Not Detect); Fentanyl, urine Not Detected (Not Detect); Methadone Screen, Urine Not Detected (Not Detect); Opiate Screen Urine Not Detected (Not Detect); Oxycodone Screen Urine Not Detected (Not Detect); Phencyclidine Screen Urine Not Detected (Not Detect)
[2024-03-26 13:49] LABS: Alanine Aminotransferase 16 U/L (0-40); Albumin Level 4.9 g/dL (3.5-5.0); Alkaline Phosphatase 100 U/L (39-117); Anion Gap 16 (12-20); Aspartate Amino Transferase 22 U/L (5-37); Bilirubin Total 0.3 mg/dL (0.0-1.0); Blood Urea Nitrogen 7 mg/dL (9-16); Carbon Dioxide 27 mmol/L (22-29); Chloride 102 mmol/L (96-108); Creatinine Clr Calc Pharmacy 134.3; Estimated Glomerular Filt Rate > 60; Ethanol 235 mg/dL; Glucose Random 104 mg/dL (60-115); Sodium 141 mmol/L (135-145); Total Protein 8.1 g/dL (6.5-8.0)
[2024-03-26] MEDS: Nicotine Polacrilex 2 MG GUM BUCCAL (14:13)
[2024-03-26 14:21] VITALS: BP 151/109; PULSE 99; RESP 17; TEMP 36.6; O2SAT 95
--- NOTE | 2024-03-26 14:37 | ED_ITS ---
HPI - Psych General Chief Complaint: Psychiatric Symptoms Stated Complaint: CRISIS PER EMS Time Seen by Provider: 03/26/24 13:00 Source: patient and EMS Mode of arrival: EMS Limitations: no limitations History of Present Illness ED Provider: Dr. Horner HPI Narrative: Patient with recent depression due to divorce and his not letting him see his kids. Patient states that he is not suicidal but texted his that today would be as good as any . She told his friend who is a Leutenant in the police department and he called EMS. He has been abusing alcohol for years, the most he has ever been sober is 6 months and he also uses cocaine. complaint: feels depressed Onset (ago): week(s) Duration: constant Related Data Home Medications ?Medication ?Instructions ?Recorded ?Confirmed No Known Home Meds 10/25/23 03/26/24 Allergies Allergy/AdvReac Type Severity Reaction Status Date / Time No Known Allergies Allergy Verified 03/26/24 12:49 Review of Systems 2 Review of Systems: Yes all other systems are reviewed and are negative Neurologic: Denies Sensory deficit (Neuro) [facility] Past Medical History Medical History Mesenteric adenitis Chronic left flank pain Hypertension Depression Surgical History History of ear surgery History of bilateral inguinal hernia repair History of appendectomy Family History Family History Father Parkinson disease Diabetes Social History Social History Household Members: Spouse Patient Tobacco Use Status: Current everyday Tobacco user Tobacco use type: Cigarette Advance Directives: No Advance Directives Information Provided: Yes Do you have a plan to hurt others: No Plan Physical Exam 2 Vital Signs: Vital Signs: Last Vital Signs Temp 97.8 F 03/26/24 14:21 Pulse 99 03/26/24 14:21 Resp 17 03/26/24 14:21 BP 151/109 H 03/26/24 14:21 Pulse Ox 95 03/26/24 14:21 O2 Del Method Room Air 03/26/24 14:21 BMI result Body Mass Index 31.2 Const: Other: unkept male Nutritional Appearance: average body habitus Orientation/consciousness: oriented to person and patient oriented x3 Limitations: no limitations HEENT: Head: Yes normal to inspection Ears: external ears normal General nose exam: Normal external nose present Mouth: Normal oral and palatal mucosa present and oropharynx normal Throat: Yes posterior oropharynx normal Eyes: General: appearance normal, both eyes and all related structures Neck: Other: supple Neck: Yes normal visual inspection Chest: Chest palpation & inspection: normal inspection of the chest Resp: Auscultation: clear to auscultation bilaterally Cardio: Jugular venous distension: no JVD Rate: regular rate Rhythm: r egular rhythm Heart sounds: S1 normal heart sound present and S2 normal heart sound present GI: Inspection: Yes normal to inspection Palpation (GI): Soft to palpation, nontender and No hepatosplenomegaly present Auscultation: normal bowel sounds : General: Yes no CVA tenderness Back/Spine/Pelvis: Back: no CVA tenderness Skin: General skin exam: no rashes or lesions noted Neuro: General: oriented to person and patient oriented x3 Cranial nerves: Yes CN's II-XII intact bilaterally Motor exam (neuro): 5/5 motor strength present throughout Sensory Exam: No Sensory deficit (Neuro) Extrem: General: Yes normal to inspection Psych: Appearance: grossly normal Course Reevaluation(s) Reevaluation #1: Seen and cleared by crisis patient understands that he should not have texted what he did. He is clinically sober despite elevated ETOH level. Will dc home Time: 14:51 Medications Administered Generic Name Dose Route Start Last Admin Trade Name Freq PRN Reason Stop Dose Admin Nicotine Polacrilex 2 mg 03/26/24 13:53 03/26/24 14:13 Nicotine Polacrilex 2 Mg Gum BUCCAL 2 mg ONCE PRN Administration Nicotine Cravings Discontinued Medications Generic Name Dose Route Start Last Admin Trade Name Freq PRN Reason Stop Dose Admin Lorazepam 1 mg 03/26/24 13:19 03/26/24 13:24 Lorazepam 1 Mg Tablet PO 03/26/24 13:20 1 mg ONCE ONE Administration Medical Decision Making Differential Diagnosis Differential Diagnoses: The differential diagnosis associated with the presentation includes (depression, alcohol intoxication, cocaine abuse) Admission/Observation Consideration of admission/observation: Escalation of care including admission/observation considered (upon arrival patient considered for admission) Consult Healthcare Provider Management of the patient was discussed with: Behavioral Health Provider Lab Data 03/26/24 12:59 03/26/24 12:59 Labs: Lab Results 03/26/24 03/26/24 Range/Units 12:59 13:08 WBC 7.6 (4.8-10.8) X10*3/uL RBC 5.46 (4.60-5.80) X10*6/uL Hgb 17.1 (14.0-18.0) g/dl Hct 49.4 (42.0-52.0) % MCV 90.5 (80.0-98.0) fL MCH 31.3 (27.0-33.0) pg MCHC 34.6 (31.0-36.0) g/dl RDW 13.5 (11.0-16.0) % Plt Count 324 (160-400) X10*3/uL MPV 9.2 L (9.4-12.4) fL Absolute Nucleated RBC 0.000 (0.0-0.012) X10*3/uL Nucleated RBC % (auto) 0.0 (0.0-0.2) /100WBC Sodium 141 (135-145) mmol/L Potassium 4.0 (3.3-5.1) mmol/L Chloride 102 (96-108) mmol/L Carbon Dioxide 27 (22-29) mmol/L Anion Gap 16 (12-20) BUN 7 L (9-16) mg/dL Creatinine 0.84 (0.5-1.4) mg/dL Estim Creat Clear Calc 134.3 Estimated GFR > 60 Random Glucose 104 (60-115) mg/dL Calcium 9.0 D (8.4-10.2) mg/dL Total Bilirubin 0.3 (0.0-1.0) mg/dL AST 22 (5-37) U/L ALT 16 (0-40) U/L Alkaline Phosphatase 100 (39-117) U/L Total Protein 8.1 H (6.5-8.0) g/dL Albumin 4.9 (3.5-5.0) g/dL Urine Opiates Screen Not Detected (Not Detect) Ur Buprenorphine Scrn Not Detected (Not Detect) ng/mL Ur Oxycodone Screen Not Detected (Not Detect) ng/mL Urine Methadone Screen Not Detected (Not Detect) ng/mL Urine Fentanyl Screen Not Detected (Not Detect) Ur Barbiturates Screen Not Detected (Not Detect) Ur Phencyclidine Scrn Not Detected (Not Detect) Ur Amphetamines Screen Not Detected (Not Detect) U Benzodiazepines Scrn Not Detected (Not Detect) Urine Cocaine Screen POSITIVE H (Not Detect) U Marijuana (THC) Screen Not Detected (Not Detect) Ethyl Alcohol 235 mg/dL Independent Historian Clinical information obtained from an independent historian. History obtained from or confirmed by: EMS Chronic Conditions Patient?s care impacted by: Other (alcoholism) Social Determinants Patient?s care significantly limited by Social Determinants of Health including: Alcoholism and drug addiction in family Discharge Plan Discharge Clinical Impression: Depression, Alcoholism, Cocaine abuse Patient Disposition: Home, Self-Care Instructions: Cocaine Abuse (ED), Depression (ED), Alcohol Use Disorder (ED) Prescriptions: No Action No Known Home Meds Referrals: Tessie Miguel MD [Primary Care Provider] - 5 days Print Language: Australian
[2024-03-26 15:00] VITALS: BP 151/109; PULSE 99; RESP 17; TEMP 36.6; O2SAT 95
== END 2024-03-26 15:03 | disposition home or self-care (01) ==
PROVIDERS: Emergency Provider Emergency Medicine; PCP Internal Medicine
DX: F33.1 Major depressive disorder, recurrent, moderate (principal); F17.210 Nicotine dependence, cigarettes, uncomplicated; F10.20 Alcohol dependence, uncomplicated; F14.10 Cocaine abuse, uncomplicated; Y90.7 Blood alcohol level of 200-239 mg/100 ml; Z51.81 Encounter for therapeutic drug level monitoring; Z79.899 Other long term (current) drug therapy
CPT/HCPCS: 36415; 80053; 80307; 85027; 99284; S9485